=== PATIENT | female | born 1970 | race Caucasian/White ===

== ENCOUNTER 2018-11-17 11:46 | Outpatient (CLI) | payer BC ==
[2018-11-17] MEDS ORDERED: CALC300T5 PO (12:28)
[2018-11-17] MEDS ORDERED: ESOM20CA PO (12:28)
== END 2018-11-17 23:59 | disposition home or self-care (01) ==
LOC: STAR 11:46
PROVIDERS: ATTEND Surgery
DX: Z02.9 Encounter for administrative examinations, unspecified (principal)

== ENCOUNTER 2018-11-21 08:39 | Day surgery (SDC) | payer BC ==
[2018-11-17 12:29] VITALS: BP 118/78
[~2018-11-21] VITALS: Ht 176.5 cm; Wt 97.5 kg
[~2018-11-21 08:39] MED LIST: CALC300T5 PO; ESOM20CA PO
[2018-11-21] MEDS ORDERED: LACTATED RINGERS 1,000 ML IV SCH (09:07)
[2018-11-21] MEDS ORDERED: SLEEP AID OTC PO (09:11)
[2018-11-21] MEDS ORDERED: PLEASE ENTER HEIGHT AND WEIGHT MC SCH (09:30)
[2018-11-21] MEDS ORDERED: MIDAZOLAM 1 MG/ML, 2ML ONE (10:02)
[2018-11-21] MEDS ORDERED: FENTANYL PF 250 MCG/5ML ONE (10:03)
[2018-11-21] MEDS ORDERED: DEXAMETHASONE 4 MG/ML, 1ML ONE (10:12)
[2018-11-21] MEDS ORDERED: ONDANSETRON 2MG/ML, 2ML ONE (10:12)
[2018-11-21] MEDS ORDERED: ROCURONIUM 10MG/ML,5ML ONE (10:12)
[2018-11-21] MEDS ORDERED: SUCCINYLCHOLINE 20 MG/ML, 10ML ONE (10:12)
[2018-11-21] MEDS ORDERED: CEFAZOLIN 1,000 MG ONE (10:12)
[2018-11-21] MEDS ORDERED: PROPOFOL 10 MG/ML, 20ML ONE (10:12)
[2018-11-21] MEDS ORDERED: THROMBIN 5,000 UNIT VIAL TP ONE (11:10)
[2018-11-21] MEDS ORDERED: EPINEPHRINE 1 MG/ML, 1ML ONE (11:23)
[2018-11-21] MEDS ORDERED: BUPIVACAINE/PF 0.5% ONE (11:23)
[2018-11-21] MEDS ORDERED: METOCLOPRAMIDE 5 MG/ML, 2ML IV PRN (11:30)
[2018-11-21] MEDS ORDERED: LABETALOL 5MG/ML, 20ML IV PRN (11:30)
[2018-11-21] MEDS ORDERED: ONDANSETRON 2MG/ML, 2ML IVPush PRN (11:30)
[2018-11-21] MEDS ORDERED: hydrALAzine 20 MG/ML, 1ML IV PRN (11:30)
[2018-11-21] MEDS ORDERED: FENTANYL PF 100 MCG/2ML IV PRN (11:30)
[2018-11-21] MEDS ORDERED: ALBUTEROL SULFATE 2.5 MG/3 ML NPPB PRN (11:30)
[2018-11-21] MEDS ORDERED: MEPERIDINE/PF 25MG/0.5ML IVPush PRN (11:30)
[2018-11-21] MEDS ORDERED: PROMETHAZINE 25 MG/ML, 1ML IV PRN (11:30)
[2018-11-21] MEDS ORDERED: HYDROmorphone 1 MG/ML, 1ML INJ IV PRN (11:30)
[2018-11-21] MEDS ORDERED: OXYcodone 5 MG/5 ML ORAL.SOL UDC PO PRN (11:30)
[2018-11-21] MEDS ORDERED: KETOROLAC 30 MG/1 ML IV PRN (11:30)
[2018-11-21] MEDS ORDERED: FENTANYL PF 100 MCG/2ML ONE (11:47)
[2018-11-21] MEDS ORDERED: OXYcodone 5 MG/5 ML ORAL.SOL UDC ONE (11:47)
[2018-11-21] MEDS ORDERED: OMEPRAZOLE 20 MG CAPSULE.DR PO PRN (13:00)
[2018-11-21] MEDS ORDERED: ONDANSETRON 2MG/ML, 2ML IV PRN (13:00)
[2018-11-21] MEDS ORDERED: CALCIUM CARBONATE 500 MG TAB.CHEW PO PRN (13:00)
[2018-11-21] MEDS: morphine SULFATE 10 MG/ML, 1ML IV PRN ×3 (13:27→23:27)
[2018-11-21] MEDS: POTASSIUM CHLORIDE 20 MEQ in LACTATED RINGERS 1,000 ML IV SCH ×2 (13:48→22:44)
[2018-11-21] MEDS ORDERED: ENOXAPARIN 40 MG/0.4 ML SQ SCH (14:00)
[2018-11-21] MEDS: OXYcodone/APAP 5/325MG TABLET PO PRN ×2 (15:45→20:17)
[2018-11-21 15:49] VITALS: BP 126/81
[2018-11-21 18:57] VITALS: BP 97/49
[2018-11-21] MEDS: CEFOTETAN PMX 1GM/50ML 50 ML IVPB SCH (22:28)
[2018-11-22 00:01] VITALS: BP 106/67
[2018-11-22 05:07] VITALS: BP 102/69
[2018-11-22] MEDS: HYDROcodone/APAP 5/325 TABLET PO PRN ×2 (05:39→11:26)
[2018-11-22 07:47] VITALS: BP 99/65
[2018-11-22] MEDS ORDERED: HYDR-3240 PO (08:44)
[2018-11-22] MEDS: POTASSIUM CHLORIDE 20 MEQ in LACTATED RINGERS 1,000 ML IV SCH (10:36)
[2018-11-22] MEDS: CEFOTETAN PMX 1GM/50ML 50 ML IVPB SCH (10:36)
[2018-11-22 10:57] VITALS: BP 113/76
== END 2018-11-22 12:05 | disposition home or self-care (01) ==
LOC: OUT 08:39 → 4NOR 12:40 → UNDOADMIN 12:50 → OUT 12:50 → 4NOR 11-22 11:34 → DCLOUNGE 11-22 11:34 → OUT 11-22 12:05 → UNDODISIN 11-22 12:05
PROVIDERS: ATTEND Surgery
DX: E04.9 Nontoxic goiter, unspecified (principal); K21.9 Gastro-esophageal reflux disease without esophagitis; E66.9 Obesity, unspecified; Z68.28 Body mass index [BMI] 28.0-28.9, adult; Z72.89 Other problems related to lifestyle; Z87.891 Personal history of nicotine dependence; Z90.89 Acquired absence of other organs; Z83.3 Family history of diabetes mellitus; Z82.49 Family history of ischemic heart disease and other diseases of the circulatory system
CPT/HCPCS: 60220; 88307; 88333; C1729; J0171; J0330; J0690; J1100; J2250; J2270; J2405; J2704; J3010; J3480; J3490; J7120; G0378